=== PATIENT | male | born 1945 | race Caucasian/White ===

== ENCOUNTER 2023-09-05 17:28 | Emergency (ER) | payer MEDICARE, OTHER ==
[~2023-09-05] VITALS: Ht 190.5 cm; Wt 95.3 kg
[2023-09-05] MEDS ORDERED: BACI/NEOM/POLY B OINT PKT 1 UDPKT PACKET TP ONE (18:30)
[2023-09-05] MEDS ORDERED: TDAP [DIPH/PERTUSSIS/TET] 0.5 ML VIAL IM ONE (18:30)
[2023-09-05] MEDS ORDERED: LIDOCAINE 1% INJ 50 ML MDV IJ ONE (18:30)
[2023-09-05 21:07] VITALS: BP 127/74; TEMP 98.5; O2SAT 98
== END 2023-09-05 21:08 | disposition home or self-care (01) ==
LOC: ER 17:37
DX: S01.01XA Laceration without foreign body of scalp, initial encounter (principal); S09.90XA Unspecified injury of head, initial encounter; Z96.641 Presence of right artificial hip joint; Z88.0 Allergy status to penicillin; W01.0XXA Fall on same level from slipping, tripping and stumbling without subsequent striking against object, initial encounter; Y93.89 Activity, other specified; Y92.89 Other specified places as the place of occurrence of the external cause; Y99.8 Other external cause status
CPT/HCPCS: 70450-TC

== ENCOUNTER 2025-02-28 10:12 | Emergency (ER) | payer OTHER ==
[~2025-02-28] VITALS: Ht 190.5 cm; Wt 93.0 kg
[2025-02-28 11:28] VITALS: BP 132/79; TEMP 98.1; O2SAT 98
== END 2025-02-28 12:03 | disposition home or self-care (01) ==
LOC: ER 10:15
DX: S30.0XXA Contusion of lower back and pelvis, initial encounter (principal); S60.812A Abrasion of left wrist, initial encounter; M25.552 Pain in left hip; E78.5 Hyperlipidemia, unspecified; I10 Essential (primary) hypertension; I48.91 Unspecified atrial fibrillation; Z79.01 Long term (current) use of anticoagulants; Z88.0 Allergy status to penicillin; Z96.643 Presence of artificial hip joint, bilateral; Z96.651 Presence of right artificial knee joint; Z87.39 Personal history of other diseases of the musculoskeletal system and connective tissue; W01.0XXA Fall on same level from slipping, tripping and stumbling without subsequent striking against object, initial encounter; Y93.89 Activity, other specified; Y92.89 Other specified places as the place of occurrence of the external cause; Y99.8 Other external cause status
CPT/HCPCS: 71045-TC; 72170-TC; 73502

== ENCOUNTER 2025-09-26 12:34 | Inpatient (IN) | payer OTHER ==
[~2025-09-26] VITALS: Ht 180.3 cm; Wt 89.8 kg
[2025-09-26] MEDS: IV LR 1000 ML 1,000 ML IV ONE (13:42)
[2025-09-26 13:50] LABS: PLATELET COUNT (AUTO) 227 K/uL (150-450); RED BLOOD CELL COUNT(AUTO) 4.20 MIL/uL (4.5-6.0); RED CELL DISTRIBUTION WIDTH 14.1 % (11.5-15.0); WHITE BLOOD COUNT (AUTO) 7.8 K/uL (4.3-11.0)
[2025-09-26] MEDS ORDERED: MULT-447 PO (14:00)
[2025-09-26] MEDS ORDERED: ACET-2605 PO (14:00)
[2025-09-26] MEDS ORDERED: APIX5TAB PO (14:00)
[2025-09-26] MEDS ORDERED: TURM500C9 PO (14:00)
[2025-09-26] MEDS ORDERED: METO25TA3 PO (14:00)
[2025-09-26 14:04] LABS: ASPARTATE AMINOTRANSFERASE 25 U/L (15-37); CALCIUM, SERUM 8.9 mg/dL (8.5-10.1); CREATININE 1.1 mg/dL (0.6-1.3); SODIUM SERUM 140 mmol/L (136-145); TOTAL PROTEIN, SERUM 7.0 g/dL (6.4-8.2); UREA NITROGEN, BLOOD 27 mg/dL (7-18)
[2025-09-26 14:14] LABS: NT-PRO BNP 4109 pg/mL (0-125)
[2025-09-26 14:20] LABS: ALCOHOL, BLOOD < 3 mg/dL (0-10)
[2025-09-26 16:00] VITALS: BP 125/74; TEMP 97.7; O2SAT 95
[2025-09-26 17:00] VITALS: BP 135/72; O2SAT 99
[2025-09-26] MEDS ORDERED: ZOLPIDEM TARTRATE 5 MG TABLET PO PRN (17:30)
[2025-09-26] MEDS ORDERED: ACETAMINOPHEN 325 MG TABLET PO PRN (17:30)
[2025-09-26 18:00] VITALS: BP 91/78; O2SAT 96
[2025-09-26 19:00] VITALS: BP 97/67; O2SAT 97
[2025-09-26 20:00] VITALS: BP 119/71; TEMP 98.3; O2SAT 95
[2025-09-27] VITALS (25 sets, daily range): BP systolic 96–141; BP diastolic 56–89; TEMP 97.6–98.2; O2SAT 91–98
[2025-09-27 04:40] LABS: PLATELET COUNT (AUTO) 231 K/uL (150-450); RED BLOOD CELL COUNT(AUTO) 4.02 MIL/uL (4.5-6.0); RED CELL DISTRIBUTION WIDTH 14.1 % (11.5-15.0); WHITE BLOOD COUNT (AUTO) 7.6 K/uL (4.3-11.0)
[2025-09-27 04:46] LABS: CALCIUM, SERUM 9.0 mg/dL (8.5-10.1); CREATININE 1.0 mg/dL (0.6-1.3); SODIUM SERUM 138 mmol/L (136-145); UREA NITROGEN, BLOOD 23 mg/dL (7-18)
[2025-09-28] VITALS (34 sets, daily range): BP systolic 91–120; BP diastolic 52–98; TEMP 97.3–97.8; O2SAT 91–100
[2025-09-28 04:31] LABS: PLATELET COUNT (AUTO) 246 K/uL (150-450); RED BLOOD CELL COUNT(AUTO) 4.40 MIL/uL (4.5-6.0); RED CELL DISTRIBUTION WIDTH 14.6 % (11.5-15.0); WHITE BLOOD COUNT (AUTO) 8.1 K/uL (4.3-11.0)
[2025-09-28 04:44] LABS: CALCIUM, SERUM 9.2 mg/dL (8.5-10.1); CREATININE 1.1 mg/dL (0.6-1.3); SODIUM SERUM 140.0 mmol/L (136-145); UREA NITROGEN, BLOOD 23.0 mg/dL (7-18)
[2025-09-28 04:50] LABS: INR 1.14 (0.91-1.10)
[2025-09-28] MEDS ORDERED: LIDOCAINE HCL/MPF 1% 30 ML VIAL IJ ONE (07:22)
[2025-09-28] MEDS ORDERED: MIDAZOLAM HCL 2 MG/2ML VIAL ONE ×2 (07:44→08:07)
== END 2025-09-29 00:22 | disposition short-term general hospital (02) | DRG 259 ==
LOC: ER 12:43 → UNDOADMIN 14:51 → ICU 14:51
PROVIDERS: ADMIT Internal Medicine; ATTEND Internal Medicine
PROC: 0JH606Z Insertion of Pacemaker, Dual Chamber into Chest Subcutaneous Tissue and Fascia, Open Approach (ICD-10-PCS; principal; 2025-09-28 08:00)
DX: I44.2 Atrioventricular block, complete (principal); E78.5 Hyperlipidemia, unspecified; Z79.01 Long term (current) use of anticoagulants; I10 Essential (primary) hypertension; I48.0 Paroxysmal atrial fibrillation; Z96.643 Presence of artificial hip joint, bilateral; G62.9 Polyneuropathy, unspecified; Z96.651 Presence of right artificial knee joint; Z88.0 Allergy status to penicillin; Z87.891 Personal history of nicotine dependence; Z79.899 Other long term (current) drug therapy; Z90.49 Acquired absence of other specified parts of digestive tract; Z98.890 Other specified postprocedural states
CPT/HCPCS: 36415; 71045-TC; 80048-TC; 80076-TC; 83735-TC; 83880; 84439-TC; 84443-TC; 84484-TC; 85025-TC; 85730-TC; 87081-TC; 93307-TC; G0378; G0480; J0690; J2250; J2704; J3490; J7030; J7050; J7120